=== PATIENT | male | born 1975 | race Caucasian/White ===

== ENCOUNTER 2021-06-06 23:04 | Emergency (ER) | payer BC ==
[~2021-06-06] VITALS: Ht 165.1 cm; Wt 95.5 kg
[2021-06-06 23:19] VITALS: BP 147/80
[2021-06-06] MEDS ORDERED: FAMOTIDINE 20 MG/2 ML VIAL IVP ONE (23:50)
[2021-06-06] MEDS ORDERED: diphenhydrAMINE 50 MG/ML VIAL IVP ONE (23:50)
[2021-06-06] MEDS ORDERED: methylPREDNISolone SS 125 MG/2 ML VIAL IVP ONE (23:50)
--- NOTE | 2021-06-07 00:28 | NUR ---
PT TAKEN TO BED 10.
[2021-06-07] MEDS ORDERED: methylPREDNISolone SS 125 MG/2 ML VIAL ONE (00:55)
[2021-06-07] MEDS ORDERED: diphenhydrAMINE 50 MG/ML VIAL ONE (00:55)
[2021-06-07] MEDS ORDERED: FAMOTIDINE 20 MG/2 ML VIAL ONE (00:56)
--- NOTE | 2021-06-07 01:00 | NUR ---
45 Y/O MALE BIB SELF, C/O RASH FOR ALMOST 1 WK. PATIENT PRESENTS TO ED WITH PINK CLUSTERED RASH THAT IS NOT ITCHY, OPEN, OR SEEPING. PT STATES HE DOES NOT KNOW WHERE HE AQUIRED THE RASH FROM. HE IS SEEING A DR FOR THE RASH WHO PRESCRIBED HIM A CREAM AND PREDNISONE WHICH PT STATES ONLY MADE THE RASH WORSE. DENIES N/V/D; SKIN IS PINK/WARM/DRY; AAOX4 WITH EVEN AND STEADY GAIT; LUNGS CLEAR BL; HR EVEN AND REGULAR; PT DENIES ANY FEVER, CP, SOB, OR COUGH AT THIS TIME; PATIENT STATES PAIN OF 0/10 AT THIS TIME; VSS; PATIENT POSITIONED FOR COMFORT; HOB ELEVATED; BEDRAILS UP X1; BED DOWN. ER MD MADE AWARE OF PT STATUS. PT TESTED POS FOR COVID BUT DENIES SYMPTOMS. NO PMH NKA MEDS: PREDNISONE FOR RASH
[2021-06-07 01:05] LABS: BASOPHILS % (AUTO) 0.1 % (0.0-2.0); EOSINOPHILS # (AUTO) 0.1 K/uL (0-0.4); EOSINOPHILS % (AUTO) 0.8 % (0.0-4.0); HEMATOCRIT 45.9 % (36-52); HEMOGLOBIN 15.6 g/dL (12.0-18.0); LYMPHOCYTES # (AUTO) 1.8 K/uL (2.0-11.5); LYMPHOCYTES % (AUTO) 18.1 % (20.5-51.1); MEAN CORPUSCULAR HEMOGLOBIN 29 pg (27-31); MEAN CORPUSCULAR HGB CONC 34 g/dL (33-37); MEAN CORPUSCULAR VOLUME 84.6 fL (80-94); MONOCYTES # (AUTO) 0.7 K/uL (0.8-1.0); MONOCYTES % (AUTO) 7.5 % (1.7-9.3); NEUTROPHILS # (AUTO) 7.2 K/uL (1.8-7.7); NEUTROPHILS % (AUTO) 73.5 % (42.2-75.2); PLATELET COUNT (AUTO) 270 K/uL (140-450); RED BLOOD CELL COUNT(AUTO) 5.43 MIL/uL (4.20-6.10); RED CELL DISTRIBUTION WIDTH 12.9 % (11.6-13.7); WHITE BLOOD COUNT (AUTO) 9.8 K/uL (4.8-10.8)
[2021-06-07 01:46] LABS: ALBUMIN 3.9 g/dL (3.4-5.0); ANION GAP 12.3 (8-16); CARBON DIOXIDE 27.7 mmol/L (21-32); CREATININE 0.9 mg/dL (0.6-1.3); TOTAL BILIRUBIN 0.4 mg/dL (0.0-1.0)
[2021-06-07] MEDS ORDERED: FAMO-92 PO (01:54)
[2021-06-07] MEDS ORDERED: DIPH25TA53 PO (01:54)
[2021-06-07] MEDS ORDERED: EPIN1KIT31 IM (01:54)
[2021-06-07] MEDS ORDERED: PRED20TA5 PO (01:54)
[2021-06-07 02:09] VITALS: BP 147/80
--- NOTE | 2021-06-07 02:09 | NUR ---
Patient discharged with v/s stable. Written and verbal after care instructions given and explained. Patient alert, oriented and verbalized understanding of instructions. Ambulatory with steady gait. All questions addressed prior to discharge. ID band removed. Patient advised to follow up with PMD. Rx of EPIPEN, PEPCID, AND DELTASONE given. Patient educated on indication of medication including possible reaction and side effects. Opportunity to ask questions provided and answered. A/OX4, VSS, AMBULATORY, UNLABORED BREATHING, CALM DEMEANOR.
== END 2021-06-07 02:09 | disposition home or self-care (01) ==
LOC: MED 23:04
DX: R21 Rash and other nonspecific skin eruption (principal); Z20.822 Contact with and (suspected) exposure to COVID-19; Z79.899 Other long term (current) drug therapy
CPT/HCPCS: 36415; 80053; 85025; 87426; 96374; 96375; 99284; J1200; J2930; J3490